=== PATIENT | male | born 1945 | race Caucasian/White ===

== ENCOUNTER 2019-01-17 10:08 | Inpatient (IN) | payer OTHER ==
[~2019-01-17] VITALS: Ht 152.4 cm; Wt 77.1 kg
[~2019-01-17 10:08] MED LIST: CIPRO500 MG PO; KEFLEX250 MG PO; MOBIC15 MG PO; ORPH100T PO; PYRIDIUM100 M1 PO; TAMS0.4C PO; XANAX0.25 MG PO
--- NOTE | 2019-01-17 10:30 | NUR ---
PACIENTE ALERTA Y ORIENTADO EN GENET JULIET ESFERAS, REFIERE DOLOR GENERALIZADO E INSOMNIO HACE DOS NOCHES.
--- NOTE | 2019-01-17 11:18 | NUR ---
MS C EARNEST ORIENTA A PACIENTE SOBRE ORDENES MEDICAS Y ADMINISTRA MEDICAMENTO. MS N EARNEST CANALIZA VENA Y COLECTA MUESTRAS DE PARVIN. PENDIENTE QUE PACIENTE ENTREGUE MUESTRA DE ORINA.
--- NOTE | 2019-01-17 14:45 | NUR ---
PACIENTE ALERTA Y ORIENTADO X3, CON BUEN PATRON RESPIRATORIO Y SIGNOS VITALES ESTABLES, SE ASISTE A MD DUENO A INSERCION DE CROCKER CON CATHETER QD. INICIALMENTE SE INTENTO SIN EXITO CON CROCKER REGULAR POR MR. CABAN. SE INSERTA CORRECTAMENTE CON RETORNO DE 1250ML. SE PATTIE EN JAGRUTI CON BARANDAS ELEVADAS Y SE ORIENTA SOBRE PROCESO DE CONSULTA POR INTERNISTA Y ESPECIALISTA.
--- NOTE | 2019-01-17 15:09 | NUR ---
PTE REFIERE PICOR EN LA PIEL SARAH LE AREA D EL IV POR CIPRO, SE NOTIFICA A DR RUBI QUIEN ORDENA ELIMINAR EL MISMO. PTE AL MOMENTO RESPIRANDO SIN DIFICULTAD Y SATURANDO 97%.
--- NOTE | 2019-01-17 15:29 | NUR ---
PT ALERTA Y ORIENTADO X3 ESFERAS, SOLO. SE RECIBE EN JAGRUTI CON BARANDAS EEVADAS Y FRENOS COLOCADOS. HEPARIN LOCK E IVFLUIDS PATENTES. CROCKER CATETER PATENTE 50M DE ORINA COLOR AMARILLO INTENSO. PT TOLERA TX, TRANQUILO Y SIN DIFICULTAD RESPIRATORIA. SE MANTIENE BAJO OBSERVACION POR CAMBIOS EN ELENA. PENDIENTE CBC EL VINCENT DE MANANA A LAS 6AM.
== END 2019-01-19 15:40 | disposition left against medical advice (07) | DRG 694 ==
LOC: ER 10:08 → MEDJ 20:29 → MEDI 01-18 22:22
PROVIDERS: ADMIT Internal Medicine
PROC: BW21ZZZ Computerized Tomography (CT Scan) of Abdomen and Pelvis (ICD-10-PCS; principal; 2019-01-17)
PROC: 0T9B70Z Drainage of Bladder with Drainage Device, Via Natural or Artificial Opening (ICD-10-PCS; 2019-01-17)
DX: N13.2 Hydronephrosis with renal and ureteral calculous obstruction (principal); N17.8 Other acute kidney failure; N21.0 Calculus in bladder; N40.0 Benign prostatic hyperplasia without lower urinary tract symptoms; K57.30 Diverticulosis of large intestine without perforation or abscess without bleeding; K40.90 Unilateral inguinal hernia, without obstruction or gangrene, not specified as recurrent; R31.0 Gross hematuria

== ENCOUNTER 2019-01-24 13:16 | Emergency (ER) | payer OTHER ==
[~2019-01-24] VITALS: Ht 167.6 cm; Wt 77.1 kg
== END 2019-01-24 18:02 | disposition home or self-care (01) ==
LOC: ER 13:16
DX: N13.8 Other obstructive and reflux uropathy (principal); N17.9 Acute kidney failure, unspecified

== ENCOUNTER → 2020-02-04 | Emergency (ER) | payer OTHER ==
[~2020-02-04] VITALS: Ht 170.2 cm; Wt 74.8 kg
== END | disposition left against medical advice (07) ==
LOC: ER 09:55
DX: N39.0 Urinary tract infection, site not specified (principal); B96.89 Other specified bacterial agents as the cause of diseases classified elsewhere; R31.29 Other microscopic hematuria

== ENCOUNTER 2020-02-06 06:00 | Outpatient (CLI) | payer OTHER | END 2020-02-06 06:05 | disposition home or self-care (01) | LOC: LAB 06:00 → EDSTATUS 02-07 15:30 → SURH 02-07 15:30 | PROVIDERS: ATTEND Urology | DX: Z20.828 Contact with and (suspected) exposure to other viral communicable diseases (principal) ==

== ENCOUNTER 2020-02-06 15:02 | Outpatient (CLI) | payer OTHER | END 2020-02-06 18:00 | disposition home or self-care (01) | LOC: LAB 15:02 | PROVIDERS: ATTEND Urology | DX: N30.00 Acute cystitis without hematuria (principal) ==

== ENCOUNTER 2020-02-07 08:59 | Emergency (ER) | payer OTHER ==
[~2020-02-07] VITALS: Ht 175.3 cm; Wt 79.4 kg
== END 2020-02-07 11:06 | disposition home or self-care (01) ==
LOC: ER 08:59
DX: Z46.6 Encounter for fitting and adjustment of urinary device (principal)

== ENCOUNTER → 2020-02-09 09:36 | Outpatient (CLI) | payer OTHER | END | disposition home or self-care (01) | LOC: LAB 09:36 | PROVIDERS: ATTEND Urology | DX: R33.8 Other retention of urine (principal) ==

== ENCOUNTER 2020-02-22 11:25 | Emergency (ER) | payer OTHER ==
[~2020-02-22] VITALS: Ht 170.2 cm; Wt 72.6 kg
== END 2020-02-22 13:19 | disposition home or self-care (01) ==
LOC: ER 11:25
DX: N40.1 Benign prostatic hyperplasia with lower urinary tract symptoms (principal); R33.8 Other retention of urine; T83.091A Other mechanical complication of indwelling urethral catheter, initial encounter

== ENCOUNTER 2020-03-28 11:09 | Outpatient (CLI) | payer OTHER | END 2020-03-28 11:14 | disposition home or self-care (01) | LOC: RAD 11:09 | PROVIDERS: ATTEND Urology | DX: I11.9 Hypertensive heart disease without heart failure (principal) ==

== ENCOUNTER 2020-03-28 12:54 | Outpatient (CLI) | payer OTHER | END 2020-03-28 17:25 | disposition home or self-care (01) | LOC: EKG 12:54 | PROVIDERS: ATTEND Urology | DX: Z01.810 Encounter for preprocedural cardiovascular examination (principal) ==

== ENCOUNTER 2020-03-31 11:37 | Emergency (ER) | payer OTHER ==
[~2020-03-31] VITALS: Ht 165.1 cm; Wt 72.6 kg
[2020-03-31] MEDS ORDERED: CIPRO500 MG PO (12:35)
[2020-03-31] MEDS ORDERED: ADVIL200 M1 (12:39)
== END 2020-03-31 13:15 | disposition home or self-care (01) ==
LOC: ER 11:37
DX: T83.018A Breakdown (mechanical) of other urinary catheter, initial encounter (principal)

== ENCOUNTER 2020-04-24 07:00 | Day surgery (SDC) | payer OTHER ==
[~2020-04-24] VITALS: Ht 167.6 cm; Wt 86.2 kg
[~2020-04-24 07:00] MED LIST changes: +ADVIL200 M1
== END 2020-04-25 08:00 | disposition home or self-care (01) ==
LOC: CIR.AMB 07:00 → EDSTATUS 10:00 → SURH 10:00 → O/R 17:14 → CIR.AMB 04-25 08:00 → O/R 04-25 09:27 → SURH 04-25 09:27 → CIR.AMB 05-04 08:00
PROVIDERS: ATTEND Urology
DX: N40.1 Benign prostatic hyperplasia with lower urinary tract symptoms (principal); R33.8 Other retention of urine; N21.0 Calculus in bladder; N47.1 Phimosis; N35.819 Other urethral stricture, male, unspecified site; N47.7 Other inflammatory diseases of prepuce

== ENCOUNTER 2020-12-17 08:00 | Outpatient (CLI) | payer OTHER | END 2020-12-17 08:30 | disposition home or self-care (01) | LOC: PPH VACUNA 08:00 | DX: Z23 Encounter for immunization (principal) ==

== ENCOUNTER 2021-06-26 13:45 | Outpatient (CLI) | payer OTHER | END 2021-06-26 13:55 | disposition home or self-care (01) | LOC: PPH VACUNA 13:45 | PROVIDERS: ATTEND Emergency Medicine Pediatric Emergency Medicine | DX: Z23 Encounter for immunization (principal) ==